=== PATIENT | male | born 1975 | race Caucasian/White ===

== ENCOUNTER 2017-11-25 08:02 | Emergency (ER) | payer SELFPAY ==
--- NOTE | 2017-11-25 08:39 | ER ---
Nurse's Notes [facility] Name: Miguel Angel Madsen Jr Age: 41 yrs Sex: Male : 1975 Arrival Date: 11/25/2017 Time: 08:05 Bed 13 Private MD: None, None Diagnosis: Conjunctivitis;Cellulitis and acute lymphangitis of face Presentation: 11/25 08:10 Presenting complaint: Patient states: started redness 2 days ago, not it itches, it was tw2 crusty when i woke up and is a little painful and swollen. Transition of care: patient was not received from another setting of care. Onset of symptoms was November 25, 2017. Risk Assessment: Do you want to hurt yourself or someone else? Patient reports no desire to harm self or others. Initial Sepsis Screen: Does the patient meet any 2 criteria? No. Patient's initial sepsis screen is negative. Does the patient have a suspected source of infection? No. Patient's initial sepsis screen is negative. Care prior to arrival: None. 08:10 Method Of Arrival: Ambulatory tw2 08:10 Acuity: KARISSA 4 tw2 Historical: - Allergies: 08:35 No Known Allergies; tw2 - Home Meds: 08:35 Adderall XR 30 mg Oral cp24 1 cap once daily [Active]; Xanax 1 mg Oral tab 1 tab 3 tw2 times per day [Active]; - PMHx: 08:35 ADD/ADHD; Anxiety; tw2 - PSHx: 08:35 right first finger surgery; tw2 - Immunization history:: Adult Immunizations up to date. - Family history:: not pertinent. - Social history:: Smoking status: Patient uses tobacco products, denies chronic smoking, but will smoke occasionally, Patient uses alcohol, occasionally. - Ebola Screening: : Patient negative for fever greater than or equal to 101.5 degrees Fahrenheit, and additional compatible Ebola Virus Disease symptoms Patient denies travel to an Ebola-affected area in the 21 days before illness onset. Screenin:36 Abuse screen: Denies threats or abuse. Nutritional screening: No deficits noted. tw2 Tuberculosis screening: No symptoms or risk factors identified. Fall Risk None identified. Assessment: 08:32 General: Appears in no apparent distress. Behavior is calm, cooperative, appropriate tw2 for age. Pain: Complains of pain in right eye and left eye. Neuro: Level of Consciousness is awake, alert, obeys commands, Oriented to person, place, time, situation. Cardiovascular: Denies chest pain, shortness of breath, Patient's skin is warm and dry. Respiratory: Airway is patent Respiratory effort is even, unlabored, Respiratory pattern is regular, symmetrical. GI: No signs and/or symptoms were reported involving the gastrointestinal system. : No signs and/or symptoms were reported regarding the genitourinary system. EENT: Reports pain in right eye and left eye. EENT: Eyes swelling and redness noted. Derm: No signs and/or symptoms reported regarding the dermatologic system. Derm: Skin is intact, is healthy with good turgor, Skin temperature is warm. 09:18 Reassessment: Patient appears in no apparent distress at this time. No changes from tw2 previously documented assessment. Patient and/or family updated on plan of care and expected duration. Pain level reassessed. Patient is alert, oriented x 3, equal unlabored respirations, skin warm/dry/pink. Vital Signs: 08:11 BP 137 / 91; Pulse 73; Resp 18; Temp 98.0; Pulse Ox 99% on R/A; Weight 97.52 kg (R); tw2 Height 5 ft. 10 in. (177.80 cm); Pain 4/10; 08:11 Body Mass Index 30.85 (97.52 kg, 177.80 cm) tw2 ED Course: 08:05 Patient arrived in ED. mr 08:05 None, None is Private Physician. mr 08:09 Lavell Barragan MD is Attending Physician. jacquelyn 08:10 Yue Lopez RN is Primary Nurse. tw2 08:11 Triage completed. tw2 08:11 Arm band placed on. tw2 08:32 Awaiting: medication from pharmacy at this time. tw2 08:36 Bed in low position. tw2 08:37 Earl Hernandez MD is Referral Physician. jacquelyn 08:37 No provider procedures requiring assistance completed. Patient did not have IV access tw2 during this emergency room visit. Administered Medications: 08:29 CANCELLED (Duplicate Order): Vigamox 0.5 % 2 drops Ophthalmic once jacquelyn 09:05 Drug: Motrin 600 mg Route: PO; tw2 09:17 Follow up: Response: No adverse reaction tw2 09:05 Drug: Bactrim (160 mg-800 mg (DS) 1 tablet Route: PO; tw 09:17 Follow up: Response: No adverse reaction tw2 09:06 Drug: Vigamox 0.5 % 1 drops Route: Ophthalmic; Site: both eyes; 09:17 Follow up: Response: No adverse reaction tw2 Outcome: 08:38 Discharge ordered by . jacquelyn 09:18 Discharged to home ambulatory. :18 Condition: stable :18 Condition: good :18 Discharge instructions given to patient, Instructed on discharge instructions, follow up and referral plans. no drinking with medication, no driving heavy equipment, medication usage, Demonstrated understanding of instructions, follow-up care, medications, Prescriptions given X 3. 09:18 Patient left the ED. tw2 Signatures: Lavell Barragan MD MD cha Rivera, Maria mr Wise, Tara, RN RN tw2
--- NOTE | 2017-11-25 08:39 | EDPHYS ---
Physician Documentation [facility] Name: Miguel Angel Madsen Jr Age: 41 yrs Sex: Male : 1975 Arrival Date: 11/25/2017 Time: 08:05 Bed 13 Private MD: None, None ED Physician Lavell Barragan HPI: 11/25 08:29 This 41 yrs old Male presents to ER via Ambulatory with complaints of Eye jacquelyn Swelling. 08:29 The patient is experiencing blurred vision, burning, redness, The patient sustained jacquelyn Unknown. to both eyes. Onset: The symptoms/episode began/occurred 3 day(s) ago. Duration: the symptoms are continuous. Aggravated by blinking, opening eye, Alleviated by blinking, covering eye. Associated signs and symptoms: Pertinent positives: None. Severity of symptoms: At their worst the symptoms were mild moderate in the emergency department the symptoms are unchanged. The patient has not experienced similar symptoms in the past. Historical: - Allergies: 08:35 No Known Allergies; tw2 - Home Meds: 08:35 Adderall XR 30 mg Oral cp24 1 cap once daily [Active]; Xanax 1 mg Oral tab 1 tab 3 tw2 times per day [Active]; - PMHx: 08:35 ADD/ADHD; Anxiety; tw2 - PSHx: 08:35 right first finger surgery; tw2 - Immunization history:: Adult Immunizations up to date. - Family history:: not pertinent. - Social history:: Smoking status: Patient uses tobacco products, denies chronic smoking, but will smoke occasionally, Patient uses alcohol, occasionally. - Ebola Screening: : Patient negative for fever greater than or equal to 101.5 degrees Fahrenheit, and additional compatible Ebola Virus Disease symptoms Patient denies travel to an Ebola-affected area in the 21 days before illness onset. ROS: 08:29 Constitutional: Negative for fever, chills, and weight loss, ENT: Negative for injury, jacquelyn pain, and discharge, Neck: Negative for injury, pain, and swelling, Cardiovascular: Negative for chest pain, palpitations, and edema, Respiratory: Negative for shortness of breath, cough, wheezing, and pleuritic chest pain, Abdomen/GI: Negative for abdominal pain, nausea, vomiting, diarrhea, and constipation, Back: Negative for injury and pain, : Negative for injury, bleeding, discharge, and swelling, MS/Extremity: Negative for injury and deformity, Skin: Negative for injury, rash, and discoloration, Neuro: Negative for headache, weakness, numbness, tingling, and seizure, Psych: Negative for depression, anxiety, suicide ideation, homicidal ideation, and hallucinations, Allergy/Immunology: Negative for hives, rash, and allergies, Endocrine: Negative for neck swelling, polydipsia, polyuria, polyphagia, and marked weight changes, Hematologic/Lymphatic: Negative for swollen nodes, abnormal bleeding, and unusual bruising. 08:29 Eyes: Positive for 08:29 Eyes: Positive for blurry vision, pain, redness, tearing, of the outer aspect of conjuctiva of right eye, inner aspect of conjuctiva of right eye, outer aspect of conjuctiva of left eye and inner aspect of conjunctiva of left eye. Exam: 08:29 Constitutional: This is a well developed, well nourished patient who is awake, alert, jacquelyn and in no acute distress. Head/Face: Normocephalic, atraumatic. ENT: Nares patent. No nasal discharge, no septal abnormalities noted. Tympanic membranes are normal and external auditory canals are clear. Oropharynx with no redness, swelling, or masses, exudates, or evidence of obstruction, uvula midline. Mucous membranes moist. Neck: Trachea midline, no thyromegaly or masses palpated, and no cervical lymphadenopathy. Supple, full range of motion without nuchal rigidity, or vertebral point tenderness. No Meningismus. Chest/axilla: Normal chest wall appearance and motion. Nontender with no deformity. No lesions are appreciated. Cardiovascular: Regular rate and rhythm with a normal S1 and S2. No gallops, murmurs, or rubs. Normal PMI, no JVD. No pulse deficits. Respiratory: Lungs have equal breath sounds bilaterally, clear to auscultation and percussion. No rales, rhonchi or wheezes noted. No increased work of breathing, no retractions or nasal flaring. Abdomen/GI: Soft, non-tender, with normal bowel sounds. No distension or tympany. No guarding or rebound. No evidence of tenderness throughout. Back: No spinal tenderness. No costovertebral tenderness. Full range of motion. Skin: Warm, dry with normal turgor. Normal color with no rashes, no lesions, and no evidence of cellulitis. MS/ Extremity: Pulses equal, no cyanosis. Neurovascular intact. Full, normal range of motion. Neuro: Awake and alert, GCS 15, oriented to person, place, time, and situation. Cranial nerves II-XII grossly intact. Motor strength 5/5 in all extremities. Sensory grossly intact. Cerebellar exam normal. Normal gait. Psych: Awake, alert, with orientation to person, place and time. Behavior, mood, and affect are within normal limits. 08:29 Eyes: Periorbital structures: erythema, swelling, that is mild, Pupils: no acute jacquelyn changes, normal size, equal, round, and reactive to light and accomodation, Extraocular movements: intact throughout, Conjunctiva: injected, bilaterally, Corneas: are normal, no acute changes, abrasion, is not appreciated, foreign body, is not appreciated, Sclera: edema, injected, Anterior chamber: normal, Lids and lashes: appear normal, funduscopic exam reveals no obvious abnormalities, no acute changes, Visual mcintyre: are intact, Nystagmus: is not appreciated, no acute changes. Vital Signs: 08:11 BP 137 / 91; Pulse 73; Resp 18; Temp 98.0; Pulse Ox 99% on R/A; Weight 97.52 kg (R); tw2 Height 5 ft. 10 in. (177.80 cm); Pain 4/10; 08:11 Body Mass Index 30.85 (97.52 kg, 177.80 cm) tw2 MDM: 08:09 Patient medically screened. jacquelyn 08:36 Data reviewed: vital signs, nurses notes. jacquelyn Administered Medications: 08:29 CANCELLED (Duplicate Order): Vigamox 0.5 % 2 drops Ophthalmic once jacquelyn 09:05 Drug: Motrin 600 mg Route: PO; tw2 09:17 Follow up: Response: No adverse reaction tw2 09:05 Drug: Bactrim (160 mg-800 mg (DS) 1 tablet Route: PO; tw2 09:17 Follow up: Response: No adverse reaction tw2 09:06 Drug: Vigamox 0.5 % 1 drops Route: Ophthalmic; Site: both eyes; tw2 09:17 Follow up: Response: No adverse reaction tw2 Disposition: 11/25/17 08:38 Discharged to Home. Impression: Conjunctivitis, Cellulitis and acute lymphangitis of face. - Condition is Stable. - Discharge Instructions: Bacterial Conjunctivitis, Viral Conjunctivitis, Bacterial Conjunctivitis, [id number], Preseptal Cellulitis, Adult. - Prescriptions for Tylenol- Codeine #3 300-30 mg Oral Tablet - take 2 tablets by ORAL route every 6 hours As needed; 24 tablet. Vigamox 0.5 % Ophthalmic Drops - instill 1 drop by OPHTHALMIC route every 8 hours for 7 days; 5 milliliter. Bactrim DS 800- 160 mg Oral Tablet - take 1 tablet by ORAL route every 12 hours for 7 days; 14 tablet. - Medication Reconciliation Form, Thank You Letter, Antibiotic Education, Prescription Opioid Use form. - Follow up: Earl Hernandez MD; When: Tomorrow; Reason: Recheck today's complaints, Re-evaluation by your physician. - Problem is new. - Symptoms have improved. Signatures: Lavell Barragan MD MD cha Wise, Tara RN RN tw2 Corrections: (The following items were deleted from the chart) 08:29 08:29 Vigamox Drops 0.5 % 2 drops Ophthalmic once ordered. formerly [facility] 08:36 08:29 Eyes: Periorbital structures: appear normal, no acute changes, Pupils: no acute jacquelyn changes, equal, round, and reactive to light and accomodation, Extraocular movements: intact throughout, Conjunctiva: normal, no acute changes, Corneas: are normal, no acute changes, Sclera: Lids and lashes: funduscopic exam reveals Visual mcintyre: are intact, Nystagmus: [facility] 08:52 08:38 11/25/2017 08:38 Discharged to Home. Impression: Conjunctivitis. Condition is [facility] Stable. Forms are Medication Reconciliation Form, Thank You Letter, Antibiotic Education, Prescription Opioid Use. Follow up: Earl Hernandez; When: Tomorrow; Reason: Recheck today's complaints, Re-evaluation by your physician. Problem is new. Symptoms have improved. [facility] 09:18 08:52 11/25/2017 08:38 Discharged to Home. Impression: Conjunctivitis; Cellulitis and tw2 acute lymphangitis of face. Condition is Stable. Discharge Instructions: Bacterial Conjunctivitis, Viral Conjunctivitis, Bacterial Conjunctivitis, [place]. Prescriptions for Tylenol-Codeine #3 300-30 mg Oral Tablet - take 2 tablets by ORAL route every 6 hours As needed; 24 tablet, Vigamox 0.5 % Ophthalmic Drops - instill 1 drop by OPHTHALMIC route every 8 hours for 7 days; 5 milliliter. and Forms are Medication Reconciliation Form, Thank You Letter, Antibiotic Education, Prescription Opioid Use. Follow up: Earl Hernandez; When: Tomorrow; Reason: Recheck today's complaints, Re-evaluation by your physician. Problem is new. Symptoms have improved. jacquelyn
[2017-11-25] MEDS ORDERED: MOXIFLOXACIN HCL 0.5% 3ML OPTH OPTH SCH (08:45)
[2017-11-25] MEDS ORDERED: SMZ./TMP. 800/160 MG TABLET ONE (09:09)
[2017-11-25] MEDS ORDERED: IBUPROFEN 200 MG TAB PO ONE (09:10)
[2017-11-25] MEDS ORDERED: IBUPROFEN 400 MG TAB ONE (09:10)
== END 2017-11-25 09:18 | disposition home or self-care (01) ==
LOC: ER 08:02
DX: H10.9 Unspecified conjunctivitis (principal); L03.211 Cellulitis of face; I89.1 Lymphangitis
CPT/HCPCS: 99283

== ENCOUNTER 2017-11-28 09:13 | Emergency (ER) | payer SELFPAY ==
--- NOTE | 2017-11-28 09:52 | ER ---
Nurse's Notes [facility] Name: Miguel Angel Madsen Jr Age: 41 yrs Sex: Male : 1975 Arrival Date: 11/28/2017 Time: 09:16 Bed 5 Private MD: Miguel Angel Sutherland T Diagnosis: Conjunctivitis Presentation: 11/28 09:31 Presenting complaint: Patient states: was seen here this weekend, dx with iw conjunctivitus, prescribed abx, went to see his eye doctor and was told to continue eye drops, eyes are more red and swollen, and has pain and swelling to left side if face, pain to right side of face. Transition of care: patient was not received from another setting of care. Onset of symptoms was November 28, 2017. Risk Assessment: Do you want to hurt yourself or someone else? Patient reports no desire to harm self or others. Initial Sepsis Screen: Does the patient meet any 2 criteria? No. Patient's initial sepsis screen is negative. Does the patient have a suspected source of infection? No. Patient's initial sepsis screen is negative. Care prior to arrival:. 09:31 Method Of Arrival: Ambulatory iw 09:31 Acuity: KARISSA 3 iw Historical: - Allergies: 09:35 NKA; iw - Home Meds: 09:34 Adderall XR 30 mg Oral cp24 1 cap once daily [Active]; Xanax 1 mg Oral tab 1 tab 3 iw times per day [Active]; - PMHx: 09:34 ADD/ADHD; Anxiety; iw - PSHx: 09:34 right first finger surgery; iw - Immunization history:: Adult Immunizations not up to date, Last tetanus immunization: unknown. - Social history:: Smoking status: Patient uses tobacco products, denies chronic smoking, but will smoke occasionally. - Ebola Screening: : Patient negative for fever greater than or equal to 101.5 degrees Fahrenheit, and additional compatible Ebola Virus Disease symptoms Patient denies exposure to infectious person Patient denies travel to an Ebola-affected area in the 21 days before illness onset No symptoms or risks identified at this time. - Family history:: not pertinent. - Hospitalizations: : No recent hospitalization is reported. Screenin:39 Abuse screen: Denies threats or abuse. Denies injuries from another. Nutritional sv screening: No deficits noted. Tuberculosis screening: No symptoms or risk factors identified. Fall Risk None identified. Assessment: 09:36 General: Appears in no apparent distress. uncomfortable, well developed, Behavior is sv calm, cooperative, appropriate for age. Pain: Complains of pain in right eye, right ear, left ear, left eye and left jaw Pain currently is 7 out of 10 on a pain scale. Quality of pain is described as burning, "sore" Is continuous. Neuro: Level of Consciousness is awake, alert, obeys commands, Oriented to person, place, time, situation, Moves all extremities. Full function. Respiratory: Respiratory effort is even, unlabored, Respiratory pattern is regular, symmetrical. EENT: Eyes are tearing on right eye and left eye Sclera/Cornea are reddened in right eye and left eye Lid(s) under bilateral eyelids there is swelling noted. Left is greater than the right.. Derm: Skin is pink, warm \\T\\ dry. Vital Signs: 09:33 BP 144 / 90; Pulse 63; Resp 16; Temp 98.2; Pulse Ox 98% on R/A; Weight 90.72 kg; Height iw 5 ft. 10 in. (177.80 cm); Pain 7/10; 09:33 Body Mass Index 28.70 (90.72 kg, 177.80 cm) iw ED Course: 09:16 Patient arrived in ED. mr 09:16 Mgiuel Angel Sutherland MD is Private Physician. mr 09:29 Maurilio Magaña MD is Attending Physician. rn 09:33 Triage completed. iw 09:33 Arm band placed on. iw 09:36 Brooke Vázquez RN is Primary Nurse. sv 09:39 Patient has correct armband on for positive identification. Bed in low position. Call sv light in reach. Door closed. Head of bed elevated. 09:47 No provider procedures requiring assistance completed. Patient did not have IV access iw during this emergency room visit. Administered Medications: No medications were administered Outcome: 09:47 Discharged to iw 09:47 Following a medical screening exam, the patient was provided information regarding alternative care sites and resources available per registration personnel. 09:47 Condition: unchanged iw 09:52 Discharge ordered by . rn 09:53 Patient left the ED. iw Signatures: Brooke Vázquez RN RN Elisa Oliveira mr Lima Dalton RN RN Maurilio Magaña MD MD rn
--- NOTE | 2017-11-28 09:53 | EDPHYS ---
Physician Documentation [facility] Name: Miguel Angel Madsen Jr Age: 41 yrs Sex: Male : 1975 Arrival Date: 11/28/2017 Time: 09:16 Bed 5 Private MD: Miguel Angel Sutherland T ED Physician Maurilio Magaña HPI: 11/28 09:48 This 41 yrs old Male presents to ER via Ambulatory with complaints of Eye rn Swelling. 09:48 The patient is experiencing redness, tearing. Onset: The symptoms/episode rn began/occurred 3 day(s) ago. Duration: the symptoms are continuous. Associated signs and symptoms: Pertinent positives: None. Pertinent negatives: fever, headache. Severity of symptoms: At their worst the symptoms were moderate in the emergency department the symptoms are unchanged. The patient has experienced a previous episode. The patient has been recently seen at the [facility] Emergency Department. Seen 2 days ago here, given abx drops for conjunctivitis, seen by ophtho yesterday, who agreed, reports increased redness today, no fever, + clear drainage. . Historical: - Allergies: 09:35 NKA; iw - Home Meds: 09:34 Adderall XR 30 mg Oral cp24 1 cap once daily [Active]; Xanax 1 mg Oral tab 1 tab 3 iw times per day [Active]; - PMHx: 09:34 ADD/ADHD; Anxiety; iw - PSHx: 09:34 right first finger surgery; iw - Immunization history:: Adult Immunizations not up to date, Last tetanus immunization: unknown. - Social history:: Smoking status: Patient uses tobacco products, denies chronic smoking, but will smoke occasionally. - Ebola Screening: : Patient negative for fever greater than or equal to 101.5 degrees Fahrenheit, and additional compatible Ebola Virus Disease symptoms Patient denies exposure to infectious person Patient denies travel to an Ebola-affected area in the 21 days before illness onset No symptoms or risks identified at this time. - Family history:: not pertinent. - Hospitalizations: : No recent hospitalization is reported. ROS: 09:48 Constitutional: Negative for fever, chills, and weight loss, Eyes: + eye redness and rn drainage, no trauma ENT: Negative for injury, pain, and discharge, Neuro: Negative for headache, weakness, numbness, tingling, and seizure. Exam: 09:48 Constitutional: This is a well developed, well nourished patient who is awake, alert, rn and in no acute distress. Head/Face: Normocephalic, atraumatic. Eyes: Pupils equal round and reactive to light, extra-ocular motions intact. Lids and lashes normal. + conjunctival swelling adn redness with clear drainage, no hyphema, no fluid in anterior chamber Vital Signs: 09:33 BP 144 / 90; Pulse 63; Resp 16; Temp 98.2; Pulse Ox 98% on R/A; Weight 90.72 kg; Height iw 5 ft. 10 in. (177.80 cm); Pain 7/10; 09:33 Body Mass Index 28.70 (90.72 kg, 177.80 cm) iw MDM: 09:29 Patient medically screened. rn 09:48 Differential diagnosis: Corneal ulcer of Acute iritis of Data reviewed: vital signs, rn nurses notes. Counseling: I had a detailed discussion with the patient and/or guardian regarding: the historical points, exam findings, and any diagnostic results supporting the discharge/admit diagnosis, the need for outpatient follow up, to return to the emergency department if symptoms worsen or persist or if there are any questions or concerns that arise at home. Special discussion: I discussed with the patient/guardian in detail that at this point there is no indication for admission to the hospital. It is understood, however, that if the symptoms persist or worsen the patient needs to return immediately for re-evaluation. Based on the history and exam findings, there is no indication for further emergent testing or inpatient evaluation. I discussed with the patient/guardian the need to see the opthamologist for further evaluation of the symptoms. ED course: Already on abx drops, has only been on for 2 days, no new symptoms, seen by ophtho in last 24 hours, nothing new we can offer him here, medically screened, recommended to f/u with ophtho again if worsens.. Administered Medications: No medications were administered Disposition: 11/28/17 09:52 Discharged to Home as Medical Screen. Impression: Conjunctivitis. - Condition is Stable. - Medication Reconciliation Form, Thank You Letter, Antibiotic Education, Prescription Opioid Use form. - Follow up: Private Physician; When: As needed; Reason: Recheck today's complaints, Re-evaluation by your physician. - Problem is an ongoing problem. - Symptoms have improved. Signatures: Lima Dalton RN RN iw Maurilio Magaña MD MD overnight associate: (The following items were deleted from the chart) 09:53 09:52 11/28/2017 09:52 Discharged to Home as Medical Screen. Impression: iw Conjunctivitis. Condition is Stable. Forms are Medication Reconciliation Form, Thank You Letter, Antibiotic Education, Prescription Opioid Use. Follow up: Private Physician; When: As needed; Reason: Recheck today's complaints, Re-evaluation by your physician. Problem is an ongoing problem. Symptoms have improved. rn
== END 2017-11-28 09:53 | disposition home or self-care (01) ==
LOC: ER 09:13
DX: H10.9 Unspecified conjunctivitis (principal); F90.9 Attention-deficit hyperactivity disorder, unspecified type; Z72.0 Tobacco use
CPT/HCPCS: 99281

== ENCOUNTER 2019-09-28 17:06 | Emergency (ER) | payer SELFPAY ==
[2019-09-28] MEDS ORDERED: LIDOCAINE 1% MPF 5 ML VIAL ONE (17:51)
[2019-09-28] MEDS ORDERED: DOXYCYCLINE 100 MG CAP PO ONE (17:51)
[2019-09-28] MEDS ORDERED: TETANUS & DIPHTHERIA TOX,ADULT 0.5 ML VIAL ONE (17:52)
--- NOTE | 2019-09-28 18:05 | RAD REPORT ---
EXAM DESCRIPTION: RAD - Foot Left 3 View - 09/28/2019 5:36 pm CLINICAL HISTORY: trauma, r/o FB Pain and swelling COMPARISON: No comparisons FINDINGS: Soft tissue swelling is seen the medial midfoot. A laceration is noted. No radiopaque fore ign body seen. No fracture seen. Small calcaneal spurs.
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
[2019-09-28 18:31] VITALS: TEMP 98; O2SAT 100
[2019-09-28 18:34] VITALS: BP 132/71
== END 2019-09-28 18:25 | disposition home or self-care (01) ==
LOC: ER 17:06
PROC: 0JQR0ZZ Repair Left Foot Subcutaneous Tissue and Fascia, Open Approach (ICD-10-PCS; principal; 2019-09-28)
DX: S91.312A Laceration without foreign body, left foot, initial encounter (principal); W26.8XXA Contact with other sharp object(s), not elsewhere classified, initial encounter; Y93.18 Activity, surfing, windsurfing and boogie boarding; Y92.832 Beach as the place of occurrence of the external cause; Z23 Encounter for immunization
CPT/HCPCS: 90471; 90714; 99284

== ENCOUNTER 2020-06-22 10:13 | Emergency (ER) | payer SELFPAY ==
--- NOTE | 2020-06-22 11:21 | RAD REPORT ---
EXAM DESCRIPTION: CT - Head C Spine Mpr Wo Con - 06/22/2020 11:01 am CLINICAL HISTORY: Head and neck pain COMPARISON: None. TECHNIQUE: Computed axial tomography of the head and cervical spine was obtained. Sagittal and coronal reconstruction was performed. All CT scans are performed using dose optimization technique as appropriate and may include automated exposure control or mA/KV adjustment according to patient size. FINDINGS: An intracranial bleed is not seen. The ventricles are normal in caliber. An extra-axial fl uid collection is not noted. . Fluid within the visualized sinuses and mastoids is not seen . Mild to moderate chronic ethmoid sinus itis A cervical fracture is not visualized. No dislocation is noted. IMPRESSION: No acute intracranial abnormality is seen. [id number]-[id number] chronic ethmoid sinusitis A cervical fracture is not visualized. If the patient continues to have symptoms to suggest intracra nial /spinal cord pathology then MRI would be recommended [id number] chronic ethmoid sinusitis
--- NOTE | 2020-06-22 11:37 | EDPHYS ---
Physician Documentation [facility] Name: Miguel Angel Madsen Jr Age: 44 yrs Sex: Male : 1975 Arrival Date: 06/22/2020 Time: 10:18 Bed 20 Private MD: ED Physician Maurilio Magaña HPI: 06/22 18:24 This 44 yrs old Male presents to ER via Ambulatory with complaints of kb Headache, Nausea. 18:24 The patient complains of pain to the right occipital area. The patient describes the kb headache as constant. Onset: The symptoms/episode began/occurred 3 day(s) ago. Associated signs and symptoms: Pertinent positives: nausea. Severity of symptoms: At its worst the pain was moderate, in the emergency department the pain is unchanged. Headache History: Denies prior headaches. The symptoms are alleviated by nothing. the symptoms are aggravated by nothing. The patient has not experienced similar symptoms in the past. The patient has not recently seen a physician. Pt reports headache to right side of back of the head that started 3 days ago when out surfing. States it has been constant, today it started spreading to the front of his head while on a ladder. Also reports pain/tenderness to right posterior neck. No cervical tenderness, no injury or trauma. . Historical: - Allergies: 10:36 NKA; iw - Home Meds: 10:36 None [Active]; iw - PMHx: 10:36 ADD/ADHD; Anxiety; iw - PSHx: 10:36 None; iw - Immunization history:: Adult Immunizations not up to date. - Social history:: Smoking status: Patient reports the use of cigarette tobacco products. ROS: 18:20 Constitutional: Negative for fever, chills, and weight loss, Cardiovascular: Negative kb for chest pain, palpitations, and edema, Respiratory: Negative for shortness of breath, cough, wheezing, and pleuritic chest pain, MS/Extremity: Negative for injury and deformity, Skin: Negative for injury, rash, and discoloration. 18:20 Abdomen/GI: Positive for nausea, Negative for abdominal pain, vomiting, diarrhea. 18:20 Neuro: Positive for headache. Exam: 18:24 Constitutional: This is a well developed, well nourished patient who is awake, alert, kb and in no acute distress. Head/Face: Normocephalic, atraumatic. Eyes: Pupils equal round and reactive to light, extra-ocular motions intact. Lids and lashes normal. Conjunctiva and sclera are non-icteric and not injected. Cornea within normal limits. Periorbital areas with no swelling, redness, or edema. Cardiovascular: Regular rate and rhythm with a normal S1 and S2. No gallops, murmurs, or rubs. Normal PMI, no JVD. No pulse deficits. Respiratory: Lungs have equal breath sounds bilaterally, clear to auscultation and percussion. No rales, rhonchi or wheezes noted. No increased work of breathing, no retractions or nasal flaring. Abdomen/GI: Soft, non-tender, with normal bowel sounds. No distension or tympany. No guarding or rebound. No evidence of tenderness throughout. Skin: Warm, dry with normal turgor. Normal color with no rashes, no lesions, and no evidence of cellulitis. MS/ Extremity: Pulses equal, no cyanosis. Neurovascular intact. Full, normal range of motion. Neuro: Awake and alert, GCS 15, oriented to person, place, time, and situation. Cranial nerves II-XII grossly intact. Motor strength 5/5 in all extremities. Sensory grossly intact. Cerebellar exam normal. Normal gait. Vital Signs: 10:32 BP 128 / 63; Pulse 77; Resp 16; Pulse Ox 98% on R/A; Weight 95.25 kg; Height 5 ft. 9 iw in. (175.26 cm); Pain 6/10; 10:32 Body Mass Index 31.01 (95.25 kg, 175.26 cm) iw [place] Coma Score: 18:19 Eye Response: spontaneous(4). Verbal Response: oriented(5). Motor Response: obeys kb commands(6). Total: 15. MDM: 10:38 Patient medically screened. kb 18:19 Data reviewed: vital signs, nurses notes. Data interpreted: Pulse oximetry: on room air kb is 98 %. Interpretation: normal. Counseling: I had a detailed discussion with the patient and/or guardian regarding: the historical points, exam findings, and any diagnostic results supporting the discharge/admit diagnosis, radiology results, the need for outpatient follow up, a family practitioner, to return to the emergency department if symptoms worsen or persist or if there are any questions or concerns that arise at home. 18:20 Data reviewed: I have discussed the patient's presentation/case with the attending Emergency Department Physician;. 06/22 10:53 Order name: CT Head C Spine; Complete Time: 11:22 Administered Medications: No medications were administered Disposition: 18:34 Co-signature as Attending Physician, Maurilio Magaña MD. rn Disposition: 06/22/20 11:36 Discharged to Home. Impression: Headache. - Condition is Stable. - Discharge Instructions: General Headache Without Cause, [id number]. - Medication Reconciliation Form, Thank You Letter, Antibiotic Education, Prescription Opioid Use form. - Follow up: Emergency Department; When: As needed; Reason: Worsening of condition. Follow up: Private Physician; When: 2 - 3 days; Reason: Recheck today's complaints, Continuance of care, Re-evaluation by your physician. Signatures: Dispatcher [employer] [facility] Gabriela Jackson, GROCERY SPECIALIST-C GROCERY SPECIALIST-Ckb Lima Dalton, Maurilio Steward RN, MD MD rn Peltier, Brian, RN RN bp Corrections: (The following items were deleted from the chart) 11:02 10:37 Head Brain Wo Cont+CT.RAD.BRZ ordered. [facility] EDID 11:51 11:36 06/22/2020 11:36 Discharged to Home. Impression: Headache. Condition is Stable. bp Forms are Medication Reconciliation Form, Thank You Letter, Antibiotic Education, Prescription Opioid Use. Follow up: Emergency Department; When: As needed; Reason: Worsening of condition. Follow up: Private Physician; When: 2 - 3 days; Reason: Recheck today's complaints, Continuance of care, Re-evaluation by your physician. kb
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
[2020-06-22 11:57] VITALS: BP 128/63; O2SAT 98
== END 2020-06-22 11:51 | disposition home or self-care (01) ==
LOC: ER 10:13
DX: R51.9 Headache, unspecified (principal); Z72.0 Tobacco use
CPT/HCPCS: 70450; 72125; 99282

== ENCOUNTER 2021-03-02 11:28 | Emergency (ER) | payer SELFPAY ==
[2021-03-02] MEDS ORDERED: NA CHLORIDE 0.9% 1,000 ML ONE (12:52)
[2021-03-02 13:15] LABS: Absolute Lymphocytes (CBC) 2.4 K/uL (0.7-4.9); Basophils % 1.1 % (0-1.3); Hematocrit 43.1 % (39.6-49.0); Lymphocytes % 35.1 % (15.3-44.8); MPV 8.7 fL (7.6-11.3); RBC Red Blood Cell Count 4.75 M/uL (4.33-5.43)
[2021-03-02 13:19] LABS: Protime INR 0.93
--- NOTE | 2021-03-02 13:23 | RAD REPORT ---
EXAM DESCRIPTION: RAD - Chest Single View - 03/02/2021 1:16 pm CLINICAL HISTORY: CHEST PAIN Chest pain. COMPARISON: Clavicle Right dated 03/02/2021 FINDINGS: Portable technique limits examination quality. The lungs are grossly clear. The heart is normal in size. No displaced fractures. IMPRESSION: No acute intrathoracic process suspected.
--- NOTE | 2021-03-02 13:23 | RAD REPORT ---
EXAM DESCRIPTION: RAD - Clavicle Right - 03/02/2021 1:16 pm CLINICAL HISTORY: Pain;Deformity COMPARISON: No comparisons FINDINGS: Mild AC joint degenerative changes. No acute fracture or subluxation is seen.
[2021-03-02 13:24] LABS: Sodium Level 139 mmol/L (136-145)
[2021-03-02 13:33] LABS: ALT/SGPT 32 U/L (12-78); AST/SGOT 20 U/L (15-37); Albumin 4.2 g/dL (3.4-5.0); Alkaline Phosphatase 97 U/L (45-117); BUN Blood Urea Nitrogen 16 mg/dL (7-18); Bicarbonate 25 mmol/L (21-32); Bilirubin Direct 0.1 mg/dL (0-0.2); Bilirubin Total 0.5 mg/dL (0.2-1.0); Glucose Level 107 mg/dL (74-106); Magnesium 1.9 mg/dL (1.8-2.4); NT PRO-BNP 15 pg/mL (<125); Troponin (Emerg Dept Use Only) < 0.02 ng/mL (0.0-0.045)
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
--- NOTE | 2021-03-02 13:59 | EDPHYS ---
Physician Documentation [facility] Name: Miguel Angel Madsen Jr Age: 45 yrs Sex: Male : 1975 Arrival Date: 03/02/2021 Time: 11:29 Bed 13 Private MD: ED Physician Martha Arcos HPI: 03/02 13:24 This 45 yrs old Male presents to ER via Ambulatory with complaints of ma2 Dizziness. 13:24 The patient presents with feeling faint. Onset: The symptoms/episode began/occurred ma2 gradually, 3 day(s) ago. Associated signs and symptoms: Pertinent positives: Pertinent negatives: ataxia, chest pain, confusion, focal weakness, head injury, numbness, , shortness of breath, tingling. Severity of symptoms: At their worst the symptoms were moderate in the emergency department the symptoms have resolved. The patient has not experienced similar symptoms in the past. Historical: - Allergies: 12:15 NKA; vg1 - PMHx: 12:15 ADD/ADHD; Anxiety; vg1 - PSHx: 12:15 None; vg1 - Immunization history:: Client reports having NOT received the Covid vaccine. - Social history:: Smoking status: Patient reports the use of cigarette tobacco products, denies chronic smoking, but will smoke occasionally, Patient/guardian denies using alcohol, IV drugs, The patient lives with family, . - Family history:: not pertinent. ROS: 13:24 Constitutional: Negative for fever, chills, and weight loss. ma2 13:24 All other systems are negative. Exam: 13:24 Constitutional: This is a well developed, well nourished patient who is awake, alert, ma2 and in no acute distress. Head/Face: Normocephalic, atraumatic. Eyes: Pupils equal round and reactive to light, extra-ocular motions intact. Lids and lashes normal. Conjunctiva and sclera are non-icteric and not injected. Cornea within normal limits. Periorbital areas with no swelling, redness, or edema. ENT: Nares patent. No nasal discharge, no septal abnormalities noted. Tympanic membranes are normal and external auditory canals are clear. Oropharynx with no redness, swelling, or masses, exudates, or evidence of obstruction, uvula midline. Mucous membranes moist. Neck: Trachea midline, no thyromegaly or masses palpated, and no cervical lymphadenopathy. Supple, full range of motion without nuchal rigidity, or vertebral point tenderness. No Meningismus. Chest/axilla: right medial clavicu;lar swelling hard, ?old fracture Normal chest wall appearance and motion. Nontender with no deformity. No lesions are appreciated. Cardiovascular: Regular rate and rhythm with a normal S1 and S2. No gallops, murmurs, or rubs. Normal PMI, no JVD. No pulse deficits. Respiratory: Lungs have equal breath sounds bilaterally, clear to auscultation and percussion. No rales, rhonchi or wheezes noted. No increased work of breathing, no retractions or nasal flaring. Abdomen/GI: Soft, non-tender, with normal bowel sounds. No distension or tympany. No guarding or rebound. No evidence of tenderness throughout. Back: No spinal tenderness. No costovertebral tenderness. Full range of motion. Skin: Warm, dry with normal turgor. Normal color with no rashes, no lesions, and no evidence of cellulitis. MS/ Extremity: Pulses equal, no cyanosis. Neurovascular intact. Full, normal range of motion. Neuro: Awake and alert, GCS 15, oriented to person, place, time, and situation. Cranial nerves II-XII grossly intact. Motor strength 5/5 in all extremities. Sensory grossly intact. Cerebellar exam normal. Normal gait. Vital Signs: 12:11 BP 132 / 78; Pulse 60; Resp 16; Temp 97.7; Pulse Ox 100% ; Weight 90.72 kg; Height 5 vg1 ft. 9 in. (175.26 cm); Pain 3/10; 12:11 Body Mass Index 29.53 (90.72 kg, 175.26 cm) vg1 MDM: 12:31 Patient medically screened. ma2 13:56 Differential diagnosis: hyperventilation, hypovolemia, idiopathic dizziness, TIA, ma2 vertigo. Data reviewed: vital signs, nurses notes. Counseling: I had a detailed discussion with the patient and/or guardian regarding: the historical points, exam findings, and any diagnostic results supporting the discharge/admit diagnosis, the presence of at least one elevated blood pressure reading (>120/80) during this emergency department visit, the need for outpatient follow up. Response to treatment: the patient's symptoms have markedly improved after treatment, the patient's symptoms have resolved after treatment. ED course: Although patient did not had any angina equivalent, I recommend another troponin hours apart, also recommend Covid test however patient declined he will return to ER for any new symptom. Symptom has resolved at this time.. 03/02 12:46 Order name: Basic Metabolic Panel; Complete Time: 13:46 ma2 03/02 12:46 Order name: CBC with Diff; Complete Time: 13:46 ma2 03/02 12:46 Order name: LFT's; Complete Time: 13:46 ma2 03/02 12:46 Order name: Magnesium; Complete Time: 13:46 ma2 03/02 12:46 Order name: NT PRO-BNP; Complete Time: 13:46 ma2 03/02 12:46 Order name: PT-INR; Complete Time: 13:46 ma2 03/02 12:46 Order name: Troponin (emerg Dept Use Only); Complete Time: 13:46 ma2 03/02 12:46 Order name: XRAY Chest (1 view); Complete Time: 13:46 ma2 03/02 12:46 Order name: EKG; Complete Time: 12:47 ma2 03/02 12:46 Order name: Cardiac monitoring; Complete Time: 13:09 ma2 03/02 12:46 Order name: Clavicle Right XRAY; Complete Time: 13:46 ma2 03/02 12:46 Order name: EKG - Nurse/Tech; Complete Time: 13:09 ma2 03/02 12:46 Order name: IV Saline Lock; Complete Time: 13: ma2 03/02 12:46 Order name: Labs collected and sent; Complete Time: 13: ma2 03/02 12:46 Order name: O2 Per Protocol; Complete Time: 13: ma2 03/02 12:46 Order name: O2 Sat Monitoring; Complete Time: 13:09 ma2 Administered Medications: 13:13 Drug: NS 0.9% 1000 ml Route: IV; Rate: 1 bolus; Site: right antecubital; jt3 Disposition Summary: 03/02/21 13:58 Discharge Ordered Location: Home ma2 Condition: Stable ma2 Diagnosis - Dizziness and giddiness ma2 - Sprain of unspecified acromioclavicular joint, initial encounter ma2 Followup: ma2 - With: Private Physician - When: Tomorrow - Reason: Continuance of care Discharge Instructions: - Discharge Summary Sheet ma2 - Dizziness ma2 Forms: - Medication Reconciliation Form ma2 - Thank You Letter ma2 - Antibiotic Education ma2 - Prescription Opioid Use ma2 Prescriptions: - Meclizine 25 mg Oral Tablet - take 1 tablet by ORAL route every 8 hours As needed; 30 tablet; Refills: 0, ma2 Product Selection Permitted Signatures: Dispatcher [employer] EDMS Martha Arcos MD MD ma2 Angie Niño RN RN vg1 Martín Rincon RN RN jt3
--- NOTE | 2021-03-04 20:44 | EKG ---
Test Date: 2021-03-02 Test Time: 13:02:27 Map Plotter: ROB MEASUREMENT RESULTS: Intervals: Rate: 54 [place]: 180 QRSD: 86 QT: 406 QTc: 385 [place]: P: 48 [place]: 180 QRS: 40 T: 43 INTERPRETIVE STATEMENTS: Sinus bradycardia Otherwise normal ECG No previous ECG available for comparison Electronically Signed On 03-04-21 20:35:51 ESL INSTRUCTOR by Grayson Huddleston
== END 2021-03-02 14:37 | disposition home or self-care (01) ==
LOC: ER 11:28
DX: R42 Dizziness and giddiness (principal); S43.51XA Sprain of right acromioclavicular joint, initial encounter; F90.9 Attention-deficit hyperactivity disorder, unspecified type; F41.9 Anxiety disorder, unspecified; F17.210 Nicotine dependence, cigarettes, uncomplicated
CPT/HCPCS: 36415; 71045; 80048; 80076; 83735; 83880; 84484; 85025; 85610; 93005; 99283; J7030

== ENCOUNTER 2023-02-08 10:02 | Emergency (ER) | payer SELFPAY ==
[2023-02-08] MEDS ORDERED: HYDROCODONE/CHLORPHEN 5 ML/OSYR ONE (10:44)
[2023-02-08] MEDS ORDERED: NA CHLORIDE 0.9% 1,000 ML ONE (10:45)
[2023-02-08] MEDS ORDERED: AZITHROMYCIN 250 MG TAB ONE (10:45)
[2023-02-08] MEDS ORDERED: CEFTRIAXONE 1000 MG/VIAL ONE (10:45)
[2023-02-08] MEDS ORDERED: ASPIRIN 81 MG CHEWABLE TABLET ONE (10:46)
[2023-02-08 11:09] LABS: Absolute Lymphocytes (CBC) 0.8 K/uL (0.7-4.9); Lymphocytes % 13.7 % (15.3-44.8); MCV 92.4 fL (80-100); MPV 8.7 fL (7.6-11.3); Platelets 207 thou/uL (152-406); RBC Red Blood Cell Count 4.33 M/uL (4.33-5.43)
[2023-02-08 11:11] LABS: Protime INR 1.06
--- NOTE | 2023-02-08 11:20 | RAD REPORT ---
EXAM DESCRIPTION: Nata Single View02/08/2023 10:57 am CLINICAL HISTORY: cough COMPARISON: 2020 FINDINGS: The lungs appear clear of acute infiltrate. The heart is normal size IMPRESSION: No acute abnormalities displayed
[2023-02-08 11:23] LABS: ALT/SGPT 25 U/L (16-61); AST/SGOT 17 U/L (15-37); Albumin 3.8 g/dL (3.4-5.0); Alkaline Phosphatase 90 U/L (45-117); BUN Blood Urea Nitrogen 13 mg/dL (7-18); Bicarbonate 25 mEq/L (21-32); Bilirubin Total 0.4 mg/dL (0.2-1.0); Glomerular Filtration Rate 90 ml/min (=/>90); Glucose Level 135 mg/dL (74-106); Magnesium 1.8 mg/dL (1.6-2.4); NT PRO-BNP 22 pg/mL (<125); Potassium 3.8 mEq/L (3.5-5.1); Protein, Total 7.4 g/dL (6.4-8.2); Sodium Level 136 mEq/L (136-145); Troponin High Sensitivity 4.4 pg/mL (<58.9)
[2023-02-08 11:24] LABS: Bilirubin Direct < 0.1 mg/dL (0-0.2); Bilirubin Indirect, Calculated ND mg/dL (0.2-0.8)
--- NOTE | 2023-02-08 11:34 | EDPHYS ---
Physician Documentation [facility] Name: Miguel Angel Madsen Jr Age: 47 yrs Sex: Male : 1975 Arrival Date: 02/08/2023 Time: 10:02 Bed 8 Private MD: ED Physician Lavell Barragan HPI: 02/08 11:14 This 47 yrs old Male presents to ER via Ambulatory with complaints of Flu jacquelyn Symptoms, Chest Pressure. 11:14 The patient or guardian reports chest pain that is located primarily in the anterior jacquelyn chest wall, bilaterally. Onset: 2 day(s) ago. The pain does not radiate. Associated signs and symptoms: Pertinent positives: cough, lightheadedness. The chest pain is described as aching. Modifying factors: The symptoms are alleviated by remaining still, the symptoms are aggravated by cough. Severity of pain: At its worst the pain was mild in the emergency department the pain is unchanged. The patient has experienced similar episodes in the past, a few times. Historical: - Allergies: 11:01 NKA; rs5 - PMHx: 11:06 ADD/ADHD; rs5 - PSHx: 11:01 None; rs5 - Immunization history:: Adult Immunizations unknown. - Social history:: Smoking status: Patient denies any tobacco usage or history of. - Family history:: not pertinent. ROS: 11:14 Eyes: Negative for injury, pain, redness, and discharge, ENT: Negative for injury, jacquelyn pain, and discharge, Neck: Negative for injury, pain, and swelling, Abdomen/GI: Negative for abdominal pain, nausea, vomiting, diarrhea, and constipation, Back: Negative for injury and pain, : Negative for injury, bleeding, discharge, and swelling, MS/Extremity: Negative for injury and deformity, Skin: Negative for injury, rash, and discoloration, Neuro: Negative for headache, weakness, numbness, tingling, and seizure, Psych: Negative for depression, anxiety, suicide ideation, homicidal ideation, and hallucinations, Allergy/Immunology: Negative for hives, rash, and allergies, Endocrine: Negative for neck swelling, polydipsia, polyuria, polyphagia, and marked weight changes, Hematologic/Lymphatic: Negative for swollen nodes, abnormal bleeding, and unusual bruising, 11:14 Constitutional: Positive for body aches, chills, fatigue, fever, malaise, 11:14 MS/extremity: Negative for acute changes, swelling, tenderness, Exam: 11:14 Head/Face: Normocephalic, atraumatic. Eyes: Pupils equal round and reactive to light, jacquelyn extra-ocular motions intact. Lids and lashes normal. Conjunctiva and sclera are non-icteric and not injected. Cornea within normal limits. Periorbital areas with no swelling, redness, or edema. ENT: Nares patent. No nasal discharge, no septal abnormalities noted. Tympanic membranes are normal and external auditory canals are clear. Oropharynx with no redness, swelling, or masses, exudates, or evidence of obstruction, uvula midline. Mucous membranes moist. Neck: Trachea midline, no thyromegaly or masses palpated, and no cervical lymphadenopathy. Supple, full range of motion without nuchal rigidity, or vertebral point tenderness. No Meningismus. Chest/axilla: Normal chest wall appearance and motion. Nontender with no deformity. No lesions are appreciated. Cardiovascular: Regular rate and rhythm with a normal S1 and S2. No gallops, murmurs, or rubs. Normal PMI, no JVD. No pulse deficits. Abdomen/GI: Soft, non-tender, with normal bowel sounds. No distension or tympany. No guarding or rebound. No evidence of tenderness throughout. Back: No spinal tenderness. No costovertebral tenderness. Full range of motion. Male : Normal genitalia with no discharge or lesions. Skin: Warm, dry with normal turgor. Normal color with no rashes, no lesions, and no evidence of cellulitis. MS/ Extremity: Pulses equal, no cyanosis. Neurovascular intact. Full, normal range of motion. Neuro: Awake and alert, GCS 15, oriented to person, place, time, and situation. Cranial nerves II-XII grossly intact. Motor strength 5/5 in all extremities. Sensory grossly intact. Cerebellar exam normal. Normal gait. Psych: Awake, alert, with orientation to person, place and time. Behavior, mood, and affect are within normal limits. 11:14 Constitutional: The patient appears febrile, 11:14 Respiratory: the patient does not display signs of respiratory distress, Respirations: normal, no acute changes, labored breathing, is not present, Breath sounds: rhonchi, that are mild, are scattered, Respiratory rate: 18 11:31 ECG was reviewed by the Attending Physician. [facility] Vital Signs: 10:15 BP 133 / 86; Pulse 72; Resp 17; Pulse Ox 99% on R/A; rs5 10:22 BP 130 / 82; Pulse 75; Resp 17; Temp 97.8; Pulse Ox 99% on R/A; rs5 11:08 BP 129 / 80; Pulse 73; Resp 18; Pulse Ox 99% on R/A; rs5 MDM: 10:10 Patient medically screened. [facility] 11:19 Differential diagnosis: abnormal EKG, acute pericarditis, anxiety, coronary artery jacquelyn disease chest wall pain, Cholelithiasis costochondritis, esophagitis, gastritis, gastroesophageal reflux disease (GERD), pleurisy, pneumonia, pulmonary embolus, stable angina, thoracic aortic disection, unstable angina. HEART Score: History: Slightly Suspicious (0), ECG: Normal (0), Age: > 45 and < 65 years (1), Risk Factors: No Risk Factors Known (0), Troponin: < or = 1 x Normal Limit (0), Total Score = 1. The patient was given aspirin in the Emergency Department. BRYANT Risk Score: TOTAL SCORE = 0. Data reviewed: vital signs, nurses notes, lab test result(s), EKG, radiologic studies, plain films. 02/08 10:14 Order name: Basic Metabolic Panel; Complete Time: 11:33 [facility] 02/08 10:14 Order name: CBC with Diff; Complete Time: 11:33 [facility] 02/08 10:14 Order name: LFT's; Complete Time: 11:33 [facility] 02/08 10:14 Order name: Magnesium; Complete Time: 11:33 [facility] 02/08 10:14 Order name: NT PRO-BNP; Complete Time: 11:33 [facility] 02/08 10:14 Order name: PT-INR; Complete Time: 11:33 [facility] 02/08 10:14 Order name: Troponin HS; Complete Time: 11:33 [facility] 02/08 10:15 Order name: Flu; Complete Time: 11:33 [facility] 02/08 10:15 Order name: COVID-19 SARS RT PCR; Complete Time: 11:39 [facility] 02/08 10:14 Order name: XRAY Chest (1 view); Complete Time: 11:33 [facility] 02/08 10:14 Order name: EKG; Complete Time: 10:15 [facility] 02/08 10:14 Order name: Cardiac monitoring; Complete Time: [facility] 02/08 10:14 Order name: EKG - Nurse/Tech; Complete Time: [facility] 02/08 10:14 Order name: IV Saline Lock; Complete Time: [facility] 02/08 10:14 Order name: Labs collected and sent; Complete Time: [facility] 02/08 10:14 Order name: O2 Per Protocol; Complete Time: [facility] 02/08 10:15 Order name: O2 Sat Monitoring; Complete Time: [facility] EC:31 Rate is 82 beats/min. Rhythm is regular. QRS [place] is Normal. CO interval is normal. QRS jacquelyn interval is normal. QT interval is normal. No Q waves. T waves are Normal. No ST changes noted. Clinical impression: NSR w/ Non-specific ST/T Changes and No evidence of ischemia. Interpreted by me. Reviewed by me. Administered Medications: 10:21 Drug: NS 0.9% IV 1000 ml IV at 1 bolus Per protocol; 1000 mL bolus Route: IV; Rate: 1 rs5 bolus; Site: right forearm; 10:40 Follow up: Response: No adverse reaction rs5 10:21 Drug: Tussionex Pennkinetic ER PO Suspension 5 ml PO once Route: PO; rs5 10:40 Follow up: Response: No adverse reaction rs5 10:21 Drug: AZITHromycin PO 500 mg PO once Route: PO; rs5 10:50 Follow up: Response: No adverse reaction rs5 10:21 Drug: Rocephin IV 1 grams IV at per protocol once; Given slow IV push per pharmacy rs5 instructions Route: IV; Rate: per protocol; Site: right forearm; 10:40 Follow up: Response: No adverse reaction rs5 10:21 Drug: Aspirin PO Chewable Tablet 162 mg PO once Route: PO; rs5 10:40 Follow up: Response: No adverse reaction rs5 11:34 Drug: Oseltamivir PO 75 mg PO once Route: PO; rs5 Disposition Summary: 02/08/23 11:34 Discharge Ordered Notes: Location: Home jacquelyn Problem: new jacquelyn Symptoms: have improved jacquelyn Condition: Stable jacquelyn Diagnosis - Acute upper respiratory infection, unspecified jacquelyn - Fever, unspecified jacquelyn - Cough jacquelyn - Influenza due to unidentified influenza virus with other respiratory manifestations jacquelyn - flu B Followup: jacquelyn - With: Private Physician - When: 2 - 3 days - Reason: Recheck today's complaints, Continuance of care, Re-evaluation by your physician Discharge Instructions: - Discharge Summary Sheet [facility] - Fever, Adult jacquelyn - Influenza, Adult jacquelyn - Upper Respiratory Infection, Adult jacquelyn - Cool Mist Vaporizer jacquelyn - Upper Respiratory Infection, Adult, [id number] jacquelyn - Cough, Adult, [id number] [facility] - Aspirin and Your Heart [facility] - Cough, Adult [facility] Forms: - Medication Reconciliation Form [facility] - Thank You Letter [facility] - Antibiotic Education [facility] - Prescription Opioid Use [facility] - Patient Portal Instructions [facility] - Leadership Thank You Letter [facility] Prescriptions: - albuterol sulfate 90 mcg/actuation Inhalation HFA Aerosol Inhaler - inhale 2 puff INHALATION route every 6 to 8 hours as needed for shortness of jacquelyn breath or wheezing; until breathing returns to target peak flow/parameters; 1 unit; Refills: 0, Product Selection Permitted - Pepcid 20 mg Oral Tablet - take 1 tablet ORAL route every 12 hours for 10 days; 20 tablet; Refills: 0, [facility] Product Selection Permitted - Tamiflu 75 mg Oral capsule - take 1 tablet ORAL route every 12 hours for 5 days; 10 tablet; Refills: 0, [facility] Product Selection Permitted - Guaifenesin AC 10-100 mg/5 mL Oral liquid - take 10 milliliters ORAL route every 6 hours As needed; 180 milliliter; [facility] Refills: 0, Product Selection Permitted - Zithromax 500 mg Oral Tablet - take 1 tablet ORAL route once daily for 5 days; 5 tablet; Refills: 0, Product [facility] Selection Permitted Signatures: Dispatcher [employer] Lavell Fields MD MD cha Sotelo, Ricky RN RN rs5 Corrections: (The following items were deleted from the chart) 11:05 11:01 PMHx: Anxiety; rs5 rs5
--- NOTE | 2023-02-08 11:34 | ER ---
Nurse's Notes [facility] Name: Miguel Angel Madsen Jr Age: 47 yrs Sex: Male : 1975 Arrival Date: 02/08/2023 Time: 10:02 Bed 8 Private MD: Diagnosis: Acute upper respiratory infection, unspecified;Fever, unspecified;Cough;Influenza due to unidentified influenza virus with other respiratory manifestations-flu B Presentation: 02/08 10:15 Onset of symptoms was February 07, 2023 at 12:00. rs5 10:20 Chief complaint: Patient states: Congestion, cough, body aches X 1 week. Chest rs5 tightness started yesterday afternoon, worse today. 10:20 Method Of Arrival: Ambulatory rs5 10:20 Acuity: KARISSA 3 rs5 10:20 Coronavirus screen: congestion, cough unrelated to allergies. rs5 10:20 Ebola Screen: No symptoms or risks identified at this time. rs5 10:22 Initial Sepsis Screen: Does the patient meet any 2 criteria? No. Patient's initial rs5 sepsis screen is negative. Does the patient have a suspected source of infection? Yes: Productive cough/pneumonia No. Patient's initial sepsis screen is negative. Risk Assessment: Do you want to hurt yourself or someone else? Patient reports no desire to harm self or others. Onset of symptoms was February 07, 2023. Triage Assessment: 10:12 General: Appears in no apparent distress. comfortable, Behavior is calm, cooperative. rs5 10:12 Pain: Complains of pain in chest. Pain: Pain does not radiate. Pain currently is 2 out rs5 of 10 on a pain scale. Quality of pain is described as aching, Pain began 1 day ago. Is intermittent, Aggravated by coughing. Historical: - Allergies: 11:01 NKA; rs5 - PMHx: 11:06 ADD/ADHD; rs5 - PSHx: 11:01 None; rs5 - Immunization history:: Adult Immunizations unknown. - Social history:: Smoking status: Patient denies any tobacco usage or history of. - Family history:: not pertinent. Screenin:12 [facility] ED Fall Risk Assessment (Adult) History of falling in the last 3 months, rs5 including since admission No falls in past 3 months (0 pts) Confusion or Disorientation No (0 pts) Intoxicated or Sedated No (0 pts) Impaired Gait No (0 pts) Mobility Assist Device Used No (0 pt) Altered Elimination No (0 pt) Score/Fall Risk Level 0 - 2 = Low Risk Oriented to surroundings, Maintained a safe environment. 10:12 Abuse screen: Denies threats or abuse. Nutritional screening: No deficits noted. rs5 Tuberculosis screening: No symptoms or risk factors identified. Assessment: 10:12 General: Appears in no apparent distress. uncomfortable, Behavior is calm, cooperative. rs5 10:12 Pain: Complains of pain in chest Pain does not radiate. Pain currently is 2 out of 10 rs5 on a pain scale. Quality of pain is described as aching, Pain began 1 day ago. Is intermittent, Aggravated by coughing. Neuro: Level of Consciousness is awake, alert, obeys commands, Oriented to person, place, time, situation. Cardiovascular: Heart tones S1 S2 present Rhythm is regular. Respiratory: Reports cough that is productive, Airway is patent Respiratory effort is even, unlabored, Respiratory pattern is regular, symmetrical, Breath sounds are clear bilaterally. GI: Abdomen is flat, non-distended, Bowel sounds present X 4 quads. : No signs and/or symptoms were reported regarding the genitourinary system. EENT: No signs and/or symptoms were reported regarding the EENT system. Derm: Skin is intact, Skin is pink, warm \T\ dry. Musculoskeletal: Range of motion: intact in all extremities. 11:20 Reassessment: No changes from previously documented assessment. rs5 Vital Signs: 10:15 BP 133 / 86; Pulse 72; Resp 17; Pulse Ox 99% on R/A; rs5 10:22 BP 130 / 82; Pulse 75; Resp 17; Temp 97.8; Pulse Ox 99% on R/A; rs5 11:08 BP 129 / 80; Pulse 73; Resp 18; Pulse Ox 99% on R/A; rs5 ED Course: 10:05 Patient arrived in ED. im 10:10 Lavell Barragan MD is Attending Physician. jacquelyn 10:12 Patient has correct armband on for positive identification. Bed in low position. Call rs5 light in reach. Side rails up X2. Client placed on continuous cardiac and pulse oximetry monitoring. NIBP monitoring applied. bus monitor on. Pulse ox on. NIBP on. 10:12 Arm band placed on right wrist. rs5 10:14 Inserted saline lock: 20 gauge in right forearm, using aseptic technique. Blood rs5 collected. 10:14 Patient maintains SpO2 saturation greater than 95% on room air. rs5 10:19 Mike Milligan, RN is Primary Nurse. rs5 10:59 XRAY Chest (1 view) In Process Unspecified. EDMS 11:40 No provider procedures requiring assistance completed. IV discontinued, intact, rs5 bleeding controlled, No redness/swelling at site. Pressure dressing applied. 11:42 Triage completed. rs5 Administered Medications: 10:21 Drug: NS 0.9% IV 1000 ml IV at 1 bolus Per protocol; 1000 mL bolus Route: IV; Rate: 1 rs5 bolus; Site: right forearm; 10:40 Follow up: Response: No adverse reaction rs5 10:21 Drug: Tussionex Pennkinetic ER PO Suspension 5 ml PO once Route: PO; rs5 10:40 Follow up: Response: No adverse reaction rs5 10:21 Drug: AZITHromycin PO 500 mg PO once Route: PO; rs5 10:50 Follow up: Response: No adverse reaction rs5 10:21 Drug: Rocephin IV 1 grams IV at per protocol once; Given slow IV push per pharmacy rs5 instructions Route: IV; Rate: per protocol; Site: right forearm; 10:40 Follow up: Response: No adverse reaction rs5 10:21 Drug: Aspirin PO Chewable Tablet 162 mg PO once Route: PO; rs5 10:40 Follow up: Response: No adverse reaction rs5 11:34 Drug: Oseltamivir PO 75 mg PO once Route: PO; rs5 Medication: 11:40 VIS not applicable for this client. rs5 Outcome: 11:34 Discharge ordered by MD. valladares 11:40 Discharged to home ambulatory, rs5 11:40 Condition: stable rs5 11:40 Discharge instructions given to patient, 11:48 Patient left the ED. rs5 Signatures: Dispatcher [employer] EDMS Lavell Barragan MD MD cha Sotelo, Ricky, RN RN rs5 Riya Ryan Corrections: (The following items were deleted from the chart) 11:05 11:01 PMHx: Anxiety; rs5 rs5 12:27 11:05 BP 133 / 86; Pulse 72bpm; Resp 17bpm; Pulse Ox 99% RA; rs5 rs5
[2023-02-08] MEDS ORDERED: OSELTAMIVIR 75 MG CAP PO ONE (11:52)
--- NOTE | 2023-02-09 14:43 | EKG ---
Test Date: 2023-02-08 Test Time: 10:14:54 Service Vehicle Operator: MAMI MEASUREMENT RESULTS: Intervals: Rate: 82 PA: 166 QRSD: 92 QT: 344 QTc: 401 Limon: P: 48 PA: 166 QRS: 55 T: 22 INTERPRETIVE STATEMENTS: Normal sinus rhythm with sinus arrhythmia Normal ECG Compared to ECG 03/02/2021 13:02:27 Sinus bradycardia no longer present Electronically Signed On 02-09-23 14:41:17 CDT by Leonides Walls
== END 2023-02-08 11:48 | disposition home or self-care (01) ==
LOC: ER 10:02
DX: J10.1 Influenza due to other identified influenza virus with other respiratory manifestations (principal); Z20.822 Contact with and (suspected) exposure to COVID-19
CPT/HCPCS: 36415; 71045; 80048; 80076; 83735; 83880; 84484; 85025; 85610; 87635; 87804; 93005; 96374; 99285; J0696; J7030

== ENCOUNTER 2023-09-19 08:58 | Emergency (ER) | payer SELFPAY ==
[2023-09-19] MEDS ORDERED: LIDOCAINE 2% MPF 5 ML VIAL ONE (09:24)
--- NOTE | 2023-09-19 10:09 | EDPHYS ---
Physician Documentation [facility] Name: Miguel Angel Madsen Jr Age: 47 yrs Sex: Male : 1975 Arrival Date: 09/19/2023 Time: 08:58 Bed 11 Private MD: ED Physician Tarah Yoon HPI: 09/18 09:24 This 47 yrs old Male presents to ER via Ambulatory with complaints of Laceration To sp3 Hand. 09:24 47-year-old male with history of ADD presents to the ED with chief complaint left thumb sp3 laceration from a brand-new utility knife as he was taking it out of the packet. Injury is clean and noncontaminated. He also states he has mild numbness on the area on the side of the thumb where the laceration is. He denies any difficulty moving his thumb. No other injury reported. No direct trauma or perceived risk of foreign body. Review of systems otherwise negative for any proximal injury.. Historical: - Allergies: 09:08 NKA; iw - Home Meds: :08 None [Active]; iw - PMHx: 09:08 ADD/ADHD; iw - PSHx: 09:08 None; iw - Immunization history:: Last tetanus immunization: < 10 years ago. - Infectious Disease History:: Denies. - Social history:: Smoking status: Patient denies any tobacco usage or history of. ROS: 09:25 Constitutional: Negative for fever, chills, and weight loss, Eyes: Negative for injury, sp3 pain, redness, and discharge, ENT: Negative for injury, pain, and discharge, Neck: Negative for injury, pain, and swelling, Cardiovascular: Negative for chest pain, palpitations, and edema, Respiratory: Negative for shortness of breath, cough, wheezing, and pleuritic chest pain, Abdomen/GI: Negative for abdominal pain, nausea, vomiting, diarrhea, and constipation, Back: Negative for injury and pain, Skin: Negative for injury, rash, and discoloration, Neuro: Negative for headache, weakness, numbness, tingling, and seizure, Psych: Negative for depression, anxiety, suicide ideation, homicidal ideation, and hallucinations, Allergy/Immunology: Negative for hives, rash, and allergies, Endocrine: Negative for neck swelling, polydipsia, polyuria, polyphagia, and marked weight changes, 09:25 All other systems are negative, Exam: 09:26 Constitutional: This is a well developed, well nourished patient who is awake, alert, sp3 and in no acute distress. Head/Face: Normocephalic, atraumatic. Eyes: Pupils equal round and reactive to light, extra-ocular motions intact. Lids and lashes normal. Conjunctiva and sclera are non-icteric and not injected. Cornea within normal limits. Periorbital areas with no swelling, redness, or edema. Neck: Trachea midline, no thyromegaly or masses palpated, and no cervical lymphadenopathy. Supple, full range of motion without nuchal rigidity, or vertebral point tenderness. No Meningismus. Chest/axilla: Normal chest wall appearance and motion. Nontender with no deformity. No lesions are appreciated. Cardiovascular: Regular rate and rhythm with a normal S1 and S2. No gallops, murmurs, or rubs. Normal PMI, no JVD. No pulse deficits. Respiratory: Lungs have equal breath sounds bilaterally, clear to auscultation and percussion. No rales, rhonchi or wheezes noted. No increased work of breathing, no retractions or nasal flaring. Skin: Warm, dry with normal turgor. Normal color with no rashes, no lesions, and no evidence of cellulitis. Neuro: Awake and alert, GCS 15, oriented to person, place, time, and situation. Cranial nerves II-XII grossly intact. Motor strength 5/5 in all extremities. Sensory grossly intact. Cerebellar exam normal. Normal gait. Psych: Awake, alert, with orientation to person, place and time. Behavior, mood, and affect are within normal limits. 09:26 Musculoskeletal/extremity: 1.5 cm laceration to the lateral left thumb between the proximal and distal joints. High probability of potential nerve injury given location. Distal sensory deprivation noted with decreased 2 point discrimination. Distal capillary refill and motor function both extensor and flexor are normal. Patient does have sensation to the pad of the finger. No other deficit or injury on the left hand or proximally noted.. Vital Signs: 09:07 BP 138 / 60; Pulse 56; Resp 18; Temp 97.3; Pulse Ox 97% on R/A; Weight 90.72 kg; Height iw 5 ft. 10 in. ; Pain 6/10; 09:07 Body Mass Index 28.70 (90.72 kg, 177.8 cm) iw 09:07 Pain Scale: Adult iw MDM: 09:10 Patient medically screened. sp3 09:27 Data reviewed: vital signs, nurses notes. ED course: Laceration to the left thumb 1.5 sp3 cm. This will be repaired after cleaning, local anesthesia and repair with 5-0 Prolene sutures.. 09:30 ED course: Please use assistive procedure note. 1.5 cm laceration to the lateral left sp3 thumb between the first and second joints. Repair will be performed after local anesthesia with 1% lidocaine. Area has been cleaned and repaired with 4 interrupted 4-0 Prolene sutures. Patient tolerated procedure well. Proper dressing placed. Removal in 7 days with PCP.. 09/18 09:20 Order name: Dressing - Wound; Complete Time: 10:10 sp3 09/18 09:20 Order name: Gloves, Sterile: Size 8; Complete Time: 10:10 sp3 09/18 09:20 Order name: Prolene, Sutures: 5-0 Prolene; Complete Time: 10:10 sp3 09/18 09:20 Order name: Setup Suture Tray; Complete Time: 10:10 sp3 Administered Medications: 09:50 Drug: Lidocaine Infiltration (2 %) Syringe 100 mg 5 ml Infiltration once {Note: admin iw by Dr. Yoon.} Volume: 5 ml; Route: Infiltration; 10:11 Not Given (Product Out of Stock): tetanus-diphtheria toxoidadult 0.5 ml IM once; mb9 Provide Vaccine Information Statement (VIS). 10:31 Not Given (Patient Refused): boostrix tdap0.5 ml IM once; as a single dose iw Disposition Summary: 09/19/23 10:09 Discharge Ordered Notes: Location: Home sp3 Condition: Stable sp3 Diagnosis - Laceration to left thumb 1.5 cm with repair sp3 Followup: sp3 - With: Private Physician - When: 7 - 10 days - Reason: Continuance of care Discharge Instructions: - Discharge Summary Sheet sp3 - Sutured Wound Care sp3 Forms: - Medication Reconciliation Form sp3 - Antibiotic Education sp3 - Prescription Opioid Use sp3 - Patient Portal Instructions sp3 - Leadership Thank You Letter sp3 Signatures: Lima Dalton RN RN iw Tarah Yoon MD MD sp3 Pauline Sandhu RN RN mb9 Corrections: (The following items were deleted from the chart) 09:28 09:26 Musculoskeletal/extremity: 1.5 cm laceration to the medial left thumb between the sp3 proximal and distal joints. High probability of potential nerve injury given location. Distal sensory deprivation noted with decreased 2 point discrimination. Distal capillary refill and motor function both extensor and flexor are normal. Patient does have sensation to the pad of the finger. No other deficit or injury on the left hand or proximally noted.. sp3 10:08 09:30 ED course: Please use assistive procedure note. 1.5 cm laceration to the lateral sp3 left thumb between the first and second joints. Repair will be performed after local anesthesia with 1% lidocaine. Area has been cleaned and repaired with 3 interrupted 5-0 Prolene sutures. Patient tolerated procedure well. Proper dressing placed. Removal in 7 days with PCP.. sp3
--- NOTE | 2023-09-19 10:09 | ER ---
Nurse's Notes [facility] Name: Miguel Angel Madsen Jr Age: 47 yrs Sex: Male : 1975 Arrival Date: 09/19/2023 Time: 08:58 Bed 11 Private MD: Diagnosis: Laceration to left thumb 1.5 cm with repair Presentation: 09/18 09:07 Chief complaint: Patient states: cut his left thumb with a utility knife at work. iw Coronavirus screen: At this time, the client does not indicate any symptoms associated with coronavirus-19. Ebola Screen: Patient negative for fever greater than or equal to 101.5 degrees Fahrenheit, and additional compatible Ebola Virus Disease symptoms Patient denies exposure to infectious person. Patient denies travel to an Ebola-affected area in the 21 days before illness onset. No symptoms or risks identified at this time. Complicating Factors: There are no complicating factors for this patient. Initial Sepsis Screen: Does the patient meet any 2 criteria? No. Patient's initial sepsis screen is negative. Does the patient have a suspected source of infection? No. Patient's initial sepsis screen is negative. Risk Assessment: Do you want to hurt yourself or someone else? Patient reports no desire to harm self or others. Onset of symptoms was September 19, 2023. 09:07 Method Of Arrival: Ambulatory iw 09:07 Acuity: KARISSA 3 iw Historical: - Allergies: 09:08 NKA; iw - Home Meds: 09:08 None [Active]; iw - PMHx: 09:08 ADD/ADHD; iw - PSHx: 09:08 None; iw - Immunization history:: Last tetanus immunization: < 10 years ago. - Infectious Disease History:: Denies. - Social history:: Smoking status: Patient denies any tobacco usage or history of. Vital Signs: 09:07 BP 138 / 60; Pulse 56; Resp 18; Temp 97.3; Pulse Ox 97% on R/A; Weight 90.72 kg; Height iw 5 ft. 10 in. ; Pain 6/10; 09:07 Body Mass Index 28.70 (90.72 kg, 177.8 cm) iw 09:07 Pain Scale: Adult iw ED Course: 09:02 Patient arrived in ED. mg5 09:08 Triage completed. iw 09:09 Lima Dalton, RN is Primary Nurse. iw 09:09 Arm band placed on. iw 09:10 Tarah Yoon MD is Attending Physician. sp3 Administered Medications: 09:50 Drug: Lidocaine Infiltration (2 %) Syringe 100 mg 5 ml Infiltration once {Note: admin iw by Dr. Yoon.} Volume: 5 ml; Route: Infiltration; 10:11 Not Given (Product Out of Stock): tetanus-diphtheria toxoidadult 0.5 ml IM once; mb9 Provide Vaccine Information Statement (VIS). 10:31 Not Given (Patient Refused): boostrix tdap0.5 ml IM once; as a single dose iw Outcome: 10: Discharge ordered by . sp3 10:31 Patient left the ED. iw Signatures: Lima Dalton, BRENNA RN iw Tarah Yoon MD MD sp3 Carlotta Nuñez mg5 Pauline Sandhu RN mb9
[2023-09-19] MEDS ORDERED: TDAP (DIPHTH,PERTUSS(ACELL),TET VAC) 0.5 ML VIAL IMVAC ONE (10:20)
[2023-09-19 10:58] VITALS: BP 138/60; TEMP 97.3; O2SAT 97
== END 2023-09-19 10:31 | disposition home or self-care (01) ==
LOC: ER 08:58
PROC: 0JQK3ZZ Repair Left Hand Subcutaneous Tissue and Fascia, Percutaneous Approach (ICD-10-PCS; principal; 2023-09-19)
DX: S61.012A Laceration without foreign body of left thumb without damage to nail, initial encounter (principal); W26.0XXA Contact with knife, initial encounter
CPT/HCPCS: 99282; J2001

== ENCOUNTER 2023-10-24 20:03 | Emergency (ER) | payer SELFPAY ==
[2023-10-24] MEDS ORDERED: LIDOCAINE 1% MPF 5 ML VIAL ONE (21:07)
--- NOTE | 2023-10-24 21:45 | ER ---
Nurse's Notes [facility] Name: Miguel Angel Madsen Jr Age: 47 yrs Sex: Male : 1975 Arrival Date: 10/24/2023 Time: 20:03 Bed Treatment Private MD: Diagnosis: Laceration to right fifth finger Presentation: 10/23 20:08 Chief complaint: Patient states: pt was at work and cut his right 5th digit. as6 Coronavirus screen: At this time, the client does not indicate any symptoms associated with coronavirus-19. Ebola Screen: No symptoms or risks identified at this time. Initial Sepsis Screen: Does the patient meet any 2 criteria? No. Patient's initial sepsis screen is negative. Does the patient have a suspected source of infection? No. Patient's initial sepsis screen is negative. Risk Assessment: Do you want to hurt yourself or someone else? Patient reports no desire to harm self or others. Onset of symptoms was October 24, 2023. 20:08 Acuity: KARISSA 4 as6 20:08 Method Of Arrival: Ambulatory as6 Triage Assessment: 20:11 General: Appears in no apparent distress. comfortable, Behavior is calm, cooperative. as6 Pain: Complains of pain in right hand. Injury Description: Laceration sustained to right little finger is clean, 2.6 to 7.5 cm long. Historical: - Allergies: 20:08 NKA; as6 - PMHx: 20:08 ADD/ADHD; as6 - PSHx: 20:08 None; as6 - Immunization history:: Last tetanus immunization: unknown. - Infectious Disease History:: Denies. - Social history:: Smoking status: Patient denies any tobacco usage or history of. - Family history:: not pertinent. Screenin:10 [facility] ED Fall Risk Assessment (Adult) History of falling in the last 3 months, me1 including since admission No falls in past 3 months (0 pts) Confusion or Disorientation No (0 pts) Intoxicated or Sedated No (0 pts) Impaired Gait No (0 pts) Mobility Assist Device Used No (0 pt) Altered Elimination No (0 pt) Score/Fall Risk Level 0 - 2 = Low Risk Maintained a safe environment, Provided non-skid footwear, Hourly rounding (assess needs \T\ fall precautionary measures) done. Abuse screen: Denies threats or abuse. Nutritional screening: No deficits noted. Tuberculosis screening: No symptoms or risk factors identified. 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 Pain: Complains of pain in right little finger Pain does not radiate. Pain currently is 5 out of 10 on a pain scale. Quality of pain is described as throbbing, Pain began suddenly, Is continuous. Neuro: Level of Consciousness is awake, alert, obeys commands, Oriented to person, place, time, situation, Appropriate for age. Cardiovascular: Patient's skin is warm and dry. Respiratory: Airway is patent Respiratory effort is even, unlabored, Respiratory pattern is regular, symmetrical. GI: No signs and/or symptoms were reported involving the gastrointestinal system. : No signs and/or symptoms were reported regarding the genitourinary system. EENT: No signs and/or symptoms were reported regarding the EENT system. Derm: Skin is healthy with good turgor, Skin is pink, warm \T\ dry. Musculoskeletal: Reports pain in right little finger. Injury Description: Laceration sustained to right little finger is full thickness, not bleeding. Vital Signs: 20:07 BP 115 / 73; Pulse 74; Resp 18; Temp 97.5; Pulse Ox 98% ; Weight 90.72 kg; Height 5 ft. as6 9 in. ; Pain 2/10; 21:51 BP 122 / 68; Pulse 72; Resp 17; Pulse Ox 98% on R/A; me1 20:07 Body Mass Index 29.53 (90.72 kg, 175.26 cm) as6 20:07 Pain Scale: Adult as6 ED Course: 20:05 Patient arrived in ED. mr 20:07 Arm band placed on right wrist. as6 20:08 Kurt Jaimes MD is Attending Physician. rt 20:09 Triage completed. as6 21:05 Jammie Grant, BRENNA is Primary Nurse. me1 21:10 Patient has correct armband on for positive identification. Bed in low position. Call me1 light in reach. Provided Education on: POC. Verbalized understanding. . 21:10 No provider procedures requiring assistance completed. Patient did not have IV access me1 during this emergency room visit. 21:50 Wound care: to laceration located on right little finger was cleaned with Hibiclens, me1 dressed with 4X4s, Kerlix. Administered Medications: 21:38 Drug: Lidocaine Infiltration (1 %) 5 ml 5 ml Infiltration once; to bedside {Note: me1 Administered by Dr Jaimes.} Volume: 5 ml; Route: Infiltration; 21:38 Follow up: Response: No adverse reaction; Pain is decreased me1 Medication: 21:51 VIS not applicable for this client. me1 Outcome: 21:45 Discharge ordered by . rt 21:51 Discharged to home ambulatory, me1 21:51 Condition: stable 21:51 Discharge instructions given to patient, Instructed on discharge instructions, follow up and referral plans. Demonstrated understanding of instructions, follow-up care, 21:51 Patient left the ED. me1 Signatures: Pauline Oliveira, Reg Reg Robert Odonnell RN RN as6 Kurt Jaimes MD MD rt Jammie Grant RN RN me1
--- NOTE | 2023-10-24 21:45 | EDPHYS ---
Physician Documentation [facility] Name: Miguel Angel Madsen Jr Age: 47 yrs Sex: Male : 1975 Arrival Date: 10/24/2023 Time: 20: Bed Treatment Private MD: ED Physician Kurt Jaimes HPI: 10/23 20:29 This 47 yrs old Male presents to ER via Ambulatory with complaints of Finger laceration.rt 20:29 Patient presents to the ED with laceration to the right fifth digit. The patient was rt working, he scraped it against a electrical box causing the skin to break. Up-to-date on tetanus immunization. Denies other injury, other acute complaints, symptoms are mild in severity, no other aggravating or alleviating factors.. Historical: - Allergies: 20:08 NKA; as6 - PMHx: 20:08 ADD/ADHD; as6 - PSHx: 20:08 None; as6 - Immunization history:: Last tetanus immunization: unknown. - Infectious Disease History:: Denies. - Social history:: Smoking status: Patient denies any tobacco usage or history of. - Family history:: not pertinent. ROS: 20:29 Constitutional: Negative for fever, chills, and weight loss, Neuro: Negative for rt headache, weakness, numbness, tingling, and seizure, Psych: Negative for depression, anxiety, suicide ideation, homicidal ideation, and hallucinations, 20:29 MS/extremity: Positive for laceration, Negative for deformity, Exam: 20:29 Constitutional: This is a well developed, well nourished patient who is awake, alert, rt and in no acute distress. Head/Face: Normocephalic, atraumatic. Skin: Warm, dry with normal turgor. Normal color with no rashes, no lesions, and no evidence of cellulitis. Neuro: Awake and alert, GCS 15, oriented to person, place, time, and situation. Cranial nerves II-XII grossly intact. Motor strength 5/5 in all extremities. Sensory grossly intact. Cerebellar exam normal. Normal gait. Psych: Awake, alert, with orientation to person, place and time. Behavior, mood, and affect are within normal limits. 20:29 Musculoskeletal/extremity: 3 cm laceration to the right fifth digit medially, no active bleeding, no tendon involvement, pulses, motor, sensation intact, no foreign body. Vital Signs: 20:07 BP 115 / 73; Pulse 74; Resp 18; Temp 97.5; Pulse Ox 98% ; Weight 90.72 kg; Height 5 ft. as6 9 in. ; Pain 2/10; 21:51 BP 122 / 68; Pulse 72; Resp 17; Pulse Ox 98% on R/A; me1 20:07 Body Mass Index 29.53 (90.72 kg, 175.26 cm) as6 20:07 Pain Scale: Adult as6 Laceration: 22:38 Wound Repair of 3cm ( 1.2in ) subcutaneous laceration to right little finger. Linear rt shaped.. Distal neuro/vascular/tendon intact. Anesthesia: Digital block administered with 2 mls of 1% lidocaine. Wound prep: Copious irrigation. Skin closed with 5 4-0 Prolene using simple sutures and sterile technique. Dressed with 4x4's. Patient tolerated well. MDM: 20:11 Patient medically screened. rt 22:38 Differential Diagnosis Laceration. Data reviewed: vital signs, nurses notes. Test rt considered but Not performed: Other Details Very low suspicion for fracture, x-ray not indicated. Counseling: I had a detailed discussion with the patient and/or guardian regarding the historical points, exam findings, and any diagnostic results supporting the discharge/admit diagnosis, the need for outpatient follow up. Response to treatment: the patient's symptoms have markedly improved after treatment. 10/23 20:12 Order name: Dressing - Wound; Complete Time: 21:09 rt 10/23 20:12 Order name: Gloves, Sterile; Complete Time: 21:09 rt 10/23 20:12 Order name: Setup Suture Tray; Complete Time: 21:09 rt Administered Medications: 21:38 Drug: Lidocaine Infiltration (1 %) 5 ml 5 ml Infiltration once; to bedside {Note: me1 Administered by Dr Jaimes.} Volume: 5 ml; Route: Infiltration; 21:38 Follow up: Response: No adverse reaction; Pain is decreased me1 Disposition Summary: 10/24/23 21:45 Discharge Ordered Notes: Location: Home rt Problem: new rt Symptoms: have improved rt Condition: Stable rt Diagnosis - Laceration to right fifth finger rt Followup: rt - With: Private Physician - When: 10 - 14 days - Reason: Staple/Suture removal Discharge Instructions: - Discharge Summary Sheet rt - Laceration Care, Adult rt Forms: - Medication Reconciliation Form rt - Antibiotic Education rt - Prescription Opioid Use rt - Patient Portal Instructions rt - Leadership Thank You Letter rt Signatures: Robert Odonnell RN RN as6 Kurt Jaimes MD MD rt Jammie Grant RN RN me1
[2023-10-24 22:18] VITALS: BP 122/68; TEMP 97.5; O2SAT 98
== END 2023-10-24 21:51 | disposition home or self-care (01) ==
LOC: ER 20:03
PROC: 0HQFXZZ Repair Right Hand Skin, External Approach (ICD-10-PCS; principal; 2023-10-24)
DX: S61.216A Laceration without foreign body of right little finger without damage to nail, initial encounter (principal)
CPT/HCPCS: 12001; 99283; J2001